=== PATIENT | female | born 1995 | race African-American/Black ===

== ENCOUNTER 2017-08-02 22:05 | Emergency (ER) | payer MEDICAID, OTHER ==
[2017-08-02] MEDS ORDERED: HYDROCODONE/ACETAMINOPHEN 5-325 MG TABLET PO ONE (22:57)
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
[2017-08-03 00:51] VITALS: BP 121/80
== END 2017-08-03 00:51 | disposition home or self-care (01) ==
LOC: ER 22:05
DX: S62.301A Unspecified fracture of second metacarpal bone, left hand, initial encounter for closed fracture (principal); V58.5XXA Driver of pick-up truck or van injured in noncollision transport accident in traffic accident, initial encounter; Y93.89 Activity, other specified; J45.909 Unspecified asthma, uncomplicated; Z87.891 Personal history of nicotine dependence; Z91.013 Allergy to seafood
CPT/HCPCS: 99284

== ENCOUNTER 2017-11-08 12:58 | Emergency (ER) | payer SELFPAY ==
[2017-11-08 13:10] VITALS: BP 112/64
--- NOTE | 2017-11-08 13:53 | ER Document Report ---
ED Medical Screen (RME) - General Chief Complaint: Vaginal Bleeding Stated Complaint: VAGINAL BLEEDING Time Seen by Provider: 11/08/17 13:37 TRAVEL OUTSIDE OF THE [place] IN LAST 30 DAYS: No - HPI Patient complains to provider of: Vaginal bleeding Onset: Other - This 22-year-old female presents for evaluation of vaginal bleeding which began last night and is worsened through the day noted to be gushes of blood. She notes that generally her. Is not this heavy, is uncertain what may be causing it to be such today. She denies any trauma to the abdomen injuries bleeding problems health problems medication use or abuse does note that she has drank alcohol as recently as last night. - Related Data Allergies/Adverse Reactions: Shellfish * [Shellfish] Allergy (Verified 11/08/17 12:58) Past Medical History - Social History Family history: Reviewed & Not Pertinent Pulmonary Medical History: Reports: Hx Asthma Renal/ Medical History: Denies: Hx Peritoneal Dialysis - Immunizations Immunizations up to date: Yes Hx Diphtheria, Pertussis, Tetanus Vaccination: Yes Physical Exam - Vital signs Vitals: Temp Pulse Resp BP Pulse Ox 97.7 F 81 16 112/64 100 11/08/17 13:08 11/08/17 13:08 11/08/17 13:08 11/08/17 13:08 11/08/17 13:08 Course - Re-evaluation Re-evalutation: 11/08/17 16:27 Young woman with persistent vaginal bleeding and clots, soaking several pads over the last couple of hours. On examination she is overall well appearing, hemodynamically stable does not appear to be actively exsanguinating. We will plan for CBC as well as urinalysis likely pelvic examination. We will plan for patient undergo further evaluation investigation via secondary provider in more appropriate examination room. - Vital Signs Vital signs: Temp Pulse Resp BP Pulse Ox 97.7 F 81 16 112/64 100 11/08/17 13:08 11/08/17 13:08 11/08/17 13:08 11/08/17 13:08 11/08/17 13:08 - Laboratory Result Diagrams: 11/08/17 14:02 Laboratory results interpreted by me: 11/08/17 14:02 MCV 74 L MCH 25.9 L Doctor's Discharge - Discharge Referrals: VICTORIA HOLLAND MD [Primary Care Provider] - Follow up as needed
[2017-11-08 14:26] LABS: ABSOLUTE BASOPHILS # (AUTO) 0.1 10^3/uL (0.0-0.2); ABSOLUTE EOSINOPHILS # (AUTO) 0.1 10^3/uL (0.0-0.6); ABSOLUTE MONOCYTES (AUTO) 0.7 10^3/uL (0.1-1.4); ABSOLUTE NEUT (AUTO) 6.1 10^3/uL (1.7-8.2); BASOPHILS % (AUTO) 1.1 % (0-2); EOSINOPHILS % (AUTO) 1.4 % (0-6); HEMATOCRIT 36.8 % (36.0-47.0); HEMOGLOBIN 12.8 g/dL (12.0-15.5); MEAN CORPUSCULAR HEMOGLOBIN 25.9 pg (27.0-33.4); MEAN CORPUSCULAR HGB CONC 34.9 g/dL (32.0-36.0); MEAN CORPUSCULAR VOLUME 74 fl (80-97); MONOCYTES % (AUTO) 8.1 % (3-13); PLATELET COUNT 307 10^3/uL (150-450); RED BLOOD COUNT 4.95 10^6/uL (3.72-5.28); RED CELL DISTRIBUTION WIDTH 13.7 % (11.5-14.0); SEGMENTED NEUTROPHILS % (AUTO) 67.4 % (42-78); TOTAL CELLS COUNTED % (AUTO) 100 %
--- NOTE | 2017-11-08 14:43 | ER Document Report ---
ED GI/ - General Chief Complaint: Vaginal Bleeding Stated Complaint: VAGINAL BLEEDING Time Seen by Provider: 11/08/17 13:37 Mode of Arrival: Ambulatory Information source: Patient Notes: 22-year-old female presents to ED for complaint of vaginal bleeding since last night. She states that 3 weeks ago she had sex and then just forgot about it. She said last night she was started bleeding and went to her pants several times while she was drinking. She states her last menstrual period was on October 21. She states she is also having pelvic cramping. She states in the last hour she has been to a tampon and a pad. Patient is alert and oriented respirations regular and unlabored speaking in full sentences and walking with a even steady gait. TRAVEL OUTSIDE OF THE [place] IN LAST 30 DAYS: No - HPI Patient complains to provider of: Pelvic pain, Vaginal bleeding Onset: Yesterday Timing/Duration: Persistent Quality of pain: Cramping Severity at maximum: Severe Severity in ED: Moderate Pain Level: 3 Location: Pelvis Vaginal bleeding (Compared to normal period): Heavier LMP: 3 weeks ago Associated symptoms: Other - Pelvic cramping and vaginal bleeding Exacerbated by: Denies Relieved by: Denies Similar symptoms previously: Yes Recently seen / treated by doctor: No - Related Data Allergies/Adverse Reactions: Shellfish * [Shellfish] Allergy (Verified 11/08/17 12:58) Past Medical History - General Information source: Patient - Social History Smoking Status: Never Smoker Cigarette use (# per day): No Chew tobacco use (# tins/day): No Smoking Education Provided: No Frequency of alcohol use: Occasional Drug Abuse: None Occupation: Due to Lives with: Grandparent(s) Family History: None Patient has suicidal ideation: No Patient has homicidal ideation: No - Past Medical History Cardiac Medical History: Reports: None Pulmonary Medical History: Reports: Hx Asthma EENT Medical History: Reports: None Neurological Medical History: Reports: None Endocrine Medical History: Reports: None Renal/ Medical History: Reports: None Malignancy Medical History: Reports: None GI Medical History: Reports: None Musculoskeletal Medical History: Reports None Skin Medical History: Reports None Psychiatric Medical History: Reports: None Traumatic Medical History: Reports: None Infectious Medical History: Reports: None Surgical Hx: Negative Past Surgical History: Reports: None - Immunizations Immunizations up to date: Yes Hx Diphtheria, Pertussis, Tetanus Vaccination: Yes Review of Systems - Review of Systems Constitutional: No symptoms reported EENT: No symptoms reported Cardiovascular: No symptoms reported Respiratory: No symptoms reported Gastrointestinal: No symptoms reported Genitourinary: No symptoms reported Female Genitourinary: Vaginal bleeding, Other - The cramping Musculoskeletal: No symptoms reported Skin: No symptoms reported Hematologic/Lymphatic: No symptoms reported Neurological/Psychological: No symptoms reported -: Yes All other systems reviewed and negative Physical Exam - Vital signs Vitals: Temp Pulse Resp BP Pulse Ox 97.7 F 81 16 112/64 100 11/08/17 13:08 11/08/17 13:08 11/08/17 13:08 11/08/17 13:08 11/08/17 13:08 Interpretation: Normal - General General appearance: Appears well, Alert - HEENT Head: Normocephalic, Atraumatic Eyes: Normal Pupils: PERRL - Respiratory Respiratory status: No respiratory distress Chest status: Nontender Breath sounds: Normal Chest palpation: Normal - Cardiovascular Rhythm: Regular Heart sounds: Normal auscultation Murmur: No - Abdominal Inspection: Normal Distension: No distension Bowel sounds: Normal Tenderness: Nontender Organomegaly: No organomegaly - Back Back: Normal, Nontender - Extremities General upper extremity: Normal inspection, Nontender, Normal color, Normal ROM , Normal temperature General lower extremity: Normal inspection, Nontender, Normal color, Normal ROM , Normal temperature, Normal weight bearing. No: Seth's sign - Neurological Neuro grossly intact: Yes Cognition: Normal Orientation: AAOx4 [place] Coma Scale Eye Opening: Spontaneous Tara Coma Scale Verbal: Oriented [place] Coma Scale Motor: Obeys Commands Tara Coma Scale Total: 15 Speech: Normal Motor strength normal: LUE, RUE, LLE, RLE Sensory: Normal - Psychological Associated symptoms: Normal affect, Normal mood - Skin Skin Temperature: Warm Skin Moisture: Dry Skin Color: Normal Course - Re-evaluation Re-evalutation: 11/08/17 21:23 Discussed with patient and written report of lab results given to patient to follow-up with her primary doctor. Patient was discharged home with instructions to use ibuprofen for her menstrual cramps. - Vital Signs Vital signs: Temp Pulse Resp BP Pulse Ox 98.2 F 82 16 112/64 97 11/08/17 16:57 11/08/17 16:57 11/08/17 16:57 11/08/17 13:08 11/08/17 16:57 - Laboratory Result Diagrams: 11/08/17 14:02 Laboratory results interpreted by me: 11/08/17 11/08/17 14:02 16:05 MCV 74 L MCH 25.9 L Urine Ketones 20 H Urine Urobilinogen 2.0 H Discharge - Discharge Clinical Impression: Vaginal bleeding Condition: Stable Disposition: HOME, SELF-CARE Instructions: Use of Rpsl-Otq-Lyohjlz Ibuprofen ([facility]) Additional Instructions: VAGINAL BLEEDING: You are having an episode of abnormal bleeding. Causes of abnormal vaginal bleeding can include miscarriage or tubal , tumors such as cancer or benign fibroids, medication effects, or hormone imbalance. Testing can eliminate unsuspected , tumors, or infection as a cause. "Dysfunctional uterine bleeding" is due to hormone imbalance, and is especially common at times when the normal cycle is disturbed -- whether by recent , use of control pills or hormones, or impending menopause. If the bleeding is innocent, most commonly a short course of hormones is given to restore the uterus to normal. Sometimes, the normal menstrual cycle corrects itself naturally. Sometimes , brief hormone therapy, or even a D&C is required. Your physician will advise you. Treatment for anemia may be required if bleeding is severe. You should rest and avoid intercourse until the bleeding is controlled. Call the doctor or return for re-examination if you feel faint, have increasing pain, or have a major increase in the amount of bleeding. NORMAL EXAM AND WORKUP: At this time, except for vaginal bleeding, your examination and workup show no significant abnormality. No significant abnormal physical findings were noted. All laboratory, EKG, and imaging (x-ray, CT scans, ultrasound) studies that were ordered show no significant abnormality. Although your examination and all studies that were ordered showed no significant abnormal finding, there are no examinations and no studies that are 100% accurate. There is always the possibility that some abnormality could exist and not be detected with physical examination or within the limits and capabilities of laboratory and other studies. You should return or follow up as you were instructed on your visit today for further evaluation if your symptoms do not resolve. FOLLOW-UP CARE: If you have been referred to a physician for follow-up care, call the physician s office for an appointment as you were instructed or within the next two days. If you experience worsening or a significant change in your symptoms (very heavy bleeding with large clots of blood, passage of tissue, more severe abdominal / pelvic pain or cramping, feeling faint or severe weakness, fever, etc.), notify the physician immediately or return to the Emergency Department at any time for re-evaluation. OBSTETRIC-GYNECOLOGIC (OB-PRECISION AGRONOMIST) PHYSICIANS IN SNEADS: [facility] [address] [place] [address] [phone] Referrals: VICTORIA HOLLAND MD [Primary Care Provider] - Follow up as needed
[2017-11-08 15:10] LABS: INTERNATIONAL RATION (INR) 0.95; PROTHROMBIN TIME 13.2 SEC (11.4-15.4)
[2017-11-08 16:17] LABS: EPITHELIALS (WET MOUNT) 3+ EPITHELIALS SEEN; RBCS (WET MOUNT) 4+ RBCS SEEN; T.VAGINALIS (WET MOUNT) NO TRICHOMONAS SEEN; WBCS (WET MOUNT) RARE WBCS SEEN; YEAST (WET MOUNT) NO YEAST SEEN
[2017-11-08 16:32] LABS: APPEARANCE,URINE CLEAR; BILIRUBIN,URINE NEGATIVE (NEGATIVE); COLOR,URINE YELLOW; GLUCOSE, URINE NEGATIVE (NEGATIVE); KETONES,URINE 20 mg/dL (NEGATIVE); LEUKOCYTE ESTERASE,URINE NEGATIVE (NEGATIVE); NITRITE,URINE NEGATIVE (NEGATIVE); PROTEIN,URINE NEGATIVE (NEGATIVE); URINE SPECIFIC GRAVITY 1.029
[2017-11-08 17:43] LABS: CHLAM PCR NOT DETECTED (NOT DETECT); GON PCR NOT DETECTED (NOT DETECT)
== END 2017-11-08 16:58 | disposition home or self-care (01) ==
LOC: ER 12:58
DX: N93.8 Other specified abnormal uterine and vaginal bleeding (principal); R10.2 Pelvic and perineal pain
CPT/HCPCS: 36415; 81001; 84702; 85025; 85610; 87210; 87491; 87591; 99284

== ENCOUNTER 2019-11-28 15:00 | Emergency (ER) | payer OTHER ==
--- NOTE | 2019-11-28 15:19 | ER Document Report ---
ED Medical Screen (RME) - General Chief Complaint: Vaginal Bleeding Stated Complaint: ABDOMINAL CRAMPING Time Seen by Provider: 11/28/19 15:14 Primary Care Provider: VICTORIA HOLLAND MD [Primary Care Provider] - Follow up as needed Information source: Patient Notes: Patient presents complaining of pelvic pain for the past 3 days with heavy vaginal bleeding. Patient denies any lightheadedness or chest pain. Patient does complain of fatigue. No urinary symptoms. Patient is not currently on any kind of control. I have greeted and performed a rapid initial assessment of this patient. A comprehensive ED assessment and evaluation of the patient, analysis of test results and completion of the medical decision making process will be conducted by additional ED providers. TRAVEL OUTSIDE OF THE [place] IN LAST 30 DAYS: No - Related Data Allergies/Adverse Reactions: Shellfish * [Shellfish] Allergy (Verified 11/08/17 12:58) Past Medical History - Social History Frequency of alcohol use: None Drug Abuse: None Family history: Reviewed & Not Pertinent Pulmonary Medical History: Reports: Hx Asthma Renal/ Medical History: Denies: Hx Peritoneal Dialysis - Immunizations Immunizations up to date: Yes Hx Diphtheria, Pertussis, Tetanus Vaccination: Yes Physical Exam - Vital signs Vitals: Temp Pulse Resp BP Pulse Ox 98.9 F 78 20 116/64 98 11/28/19 15:06 11/28/19 15:06 11/28/19 15:06 11/28/19 15:06 11/28/19 15:06 - Abdominal Tenderness: Tender - Lower pelvic tenderness Course - Vital Signs Vital signs: Temp Pulse Resp BP Pulse Ox 98.9 F 78 20 116/64 98 11/28/19 15:06 11/28/19 15:06 11/28/19 15:06 11/28/19 15:06 11/28/19 15:06 Doctor's Discharge - Discharge Referrals: VICTORIA HOLLAND MD [Primary Care Provider] - Follow up as needed
[2019-11-28 16:05] LABS: ABSOLUTE BASOPHILS # (AUTO) 0.1 10^3/uL (0.0-0.2); ABSOLUTE EOSINOPHILS # (AUTO) 0.4 10^3/uL (0.0-0.6); ABSOLUTE LYMPHOCYTES (AUTO) 2.3 10^3/uL (0.5-4.7); ABSOLUTE MONOCYTES (AUTO) 0.7 10^3/uL (0.1-1.4); ABSOLUTE NEUT (AUTO) 4.3 10^3/uL (1.7-8.2); BASOPHILS % (AUTO) 0.8 % (0-2); EOSINOPHILS % (AUTO) 4.8 % (0-6); HEMATOCRIT 31.3 % (36.0-47.0); HEMOGLOBIN 11.1 g/dL (12.0-15.5); LYMPHOCYTES % (AUTO) 29.8 % (13-45); MEAN CORPUSCULAR HGB CONC 35.3 g/dL (32.0-36.0); MEAN CORPUSCULAR VOLUME 74 fl (80-97); MONOCYTES % (AUTO) 9.2 % (3-13); PLATELET COUNT 326 10^3/uL (150-450); RED BLOOD COUNT 4.26 10^6/uL (3.72-5.28); RED CELL DISTRIBUTION WIDTH 14.2 % (11.5-14.0); SEGMENTED NEUTROPHILS % (AUTO) 55.4 % (42-78); TOTAL CELLS COUNTED % (AUTO) 100 %; WHITE BLOOD COUNT 7.7 10^3/uL (4.0-10.5)
--- NOTE | 2019-11-28 16:07 | ER Document Report ---
ED General - General Chief Complaint: Vaginal Bleeding Stated Complaint: ABDOMINAL CRAMPING Time Seen by Provider: 11/28/19 15:14 Primary Care Provider: VICTORIA HOLLAND MD [Primary Care Provider] - Follow up as needed TRAVEL OUTSIDE OF THE [place] IN LAST 30 DAYS: No - HPI Onset: Other - 3 days ago Onset/Duration: Gradual Quality of pain: Cramping Associated symptoms: denies: Chest pain, Productive cough, Diarrhea, Fever, Headache Exacerbated by: Denies Relieved by: Denies Similar symptoms previously: Yes Notes: Patient is a 24-year-old female with no significant past medical history who presents with vaginal bleeding. Patient states that she has had vaginal bleeding for the past several days. She also has cramping. She denies any diarrhea, nausea, vomiting or constipation. Patient thinks her last period may have been about 1 month ago but she has irregular periods and is not sure. She denies any concern for STDs. Patient has been using ibuprofen but has not taken any today. She has not gone to work for the past 2 days because she states she has been changing her tampon every hour. Denies any fevers or chills. She has not seen an OB for this. She has had heavy vaginal bleeding and cramping in the past. - Related Data Allergies/Adverse Reactions: Shellfish * [Shellfish] Allergy (Verified 11/08/17 12:58) Past Medical History - General Information source: Patient - Social History Smoking Status: Never Smoker Frequency of alcohol use: None Drug Abuse: None Family History: None Pulmonary Medical History: Reports: Hx Asthma Renal/ Medical History: Denies: Hx Peritoneal Dialysis - Immunizations Immunizations up to date: Yes Hx Diphtheria, Pertussis, Tetanus Vaccination: Yes Review of Systems - Review of Systems Notes: CONSTITUTIONAL: No fever, fatigue or weight loss. SKIN: No rash. HENT: No congestion, ear pain, or sore throat. EYES: No recent vision problems or eye pain. ENDOCRINE: No polyuria or polydipsia. CARDIOVASCULAR: No chest pain or edema. RESPIRATORY: No cough, shortness of breath, congestion, or wheezing. GASTROINTESTINAL: No abdominal pain, nausea, vomiting, bloody stools or diarrhea. GENITOURINARY: No dysuria. Positive for vaginal bleeding MUSCULOSKELETAL: No joint pain or swelling. LYMPHATIC: No swollen glands. NEUROLOGIC: No seizures. No headache, focal weakness or sensory changes. PSYCHIATRIC: No depression or anxiety. Physical Exam - Vital signs Vitals: Temp Pulse Resp BP Pulse Ox 98.9 F 78 20 116/64 98 11/28/19 15:06 11/28/19 15:06 11/28/19 15:06 11/28/19 15:06 11/28/19 15:06 Interpretation: Normal - Notes Notes: VITAL SIGNS: Within normal limits. GENERAL: No acute distress, non-toxic appearance. Smiling and laughing in the room, watching TV. HEAD: Normal with no signs of head trauma. EYES: EOMI, conjunctiva normal, no discharge. EARS: Hearing grossly intact. NOSE: Normal. NECK: Normal range of motion, no tenderness, supple, no lymphadenopathy, No adenopathy, no JVD. CHEST: Clear breath sounds bilaterally. No wheezes, rales, or rhonchi. CARDIAC: Regular rate and rhythm. S1 and S2, without murmurs, gallops, or rubs. VASCULAR: No Edema. Peripheral pulses normal and equal in all extremities. ABDOMEN: Normal and soft with no tenderness, no masses or pulsatile masses. Nontender to palpation. GENITOURINARY: Normal, No tenderness LYMPATHTIC: No lymphadenopathy noted. MUSCULOSKELETAL: Good range of motion of all major joints. Extremities without clubbing, cyanosis or edema. NEUROLOGICAL: Alert and oriented x 3. No focal sensory or strength deficits. Speech normal. Follows commands appropriately. PSYCHIATRIC: Normal Affect, judgement and mood. SKIN: Normal appearance with no rashes or lesions. Course - Re-evaluation Re-evalutation: 11/28/19 16:10 Patient appears well on exam. She is smiling and laughing. She is unsure when her last period was as it is irregular but thinks it was about a month ago. Patient states she does not have an OB. She is declining any pain medicine. She states she is not cramping. Patient's ultrasound was reviewed and was negative. I did inform her of her mildly low hemoglobin but she has had this in the past. Patient was told that she needs to follow-up with an OB for the vaginal bleeding. She was given strict return precautions including worsening bleeding or other symptoms. 11/29/19 01:32 - Vital Signs Vital signs: Temp Pulse Resp BP Pulse Ox 98.7 F 70 18 114/62 99 11/28/19 18:49 11/28/19 18:49 11/28/19 18:49 11/28/19 18:49 11/28/19 18:49 - Laboratory Result Diagrams: 11/28/19 15:20 11/28/19 15:20 Laboratory results interpreted by me: 11/28/19 11/28/19 15:20 15:20 Hgb 11.1 L Hct 31.3 L MCV 74 L MCH 26.0 L RDW 14.2 H Chloride 108 H - Diagnostic Test Radiology reviewed: Image reviewed, Reports reviewed Discharge - Discharge Clinical Impression: Vaginal bleeding, Abdominal cramping Condition: Stable Disposition: HOME, SELF-CARE Instructions: Vaginal Bleeding ([facility]) Additional Instructions: I provided the number for an [employer] for you to follow-up with. You can take ibuprofen and Tylenol as directed. Please return for any increase of bleeding, lightheadedness, chest pain, dizziness, worsening symptoms. Forms: Return to Work Referrals: VICTORIA HOLLAND MD [Primary Care Provider] - Follow up as needed
[2019-11-28 16:21] LABS: ANION GAP 5 (5-19); BLOOD UREA NITROGEN 7 mg/dL (7-20); CALCIUM 9.1 mg/dL (8.4-10.2); CARBON DIOXIDE 27 mmol/L (22-30); CHLORIDE 108 mmol/L (98-107); GLUCOSE 88 mg/dL (75-110); POTASSIUM 4.2 mmol/L (3.6-5.0)
[2019-11-28 17:31] LABS: CHLAM PCR NOT DETECTED (NOT DETECT)
--- NOTE | 2019-11-28 17:32 | RADIOLOGY REPORT (SQ) ---
EXAM DESCRIPTION: U/S NON OB PEL TV W/DOPPLER IMAGES COMPLETED DATE/TIME: 11/28/2019 5:18 pm REASON FOR STUDY: vaginal bleeding and cramping COMPARISON: None. TECHNIQUE: Dynamic and static grayscale images acquired of the pelvis via transvaginal approach and recorded on PACS. Additional selected color Doppler and spectral images recorded. LIMITATIONS: None. FINDINGS: UTERUS: Contour normal. No mass. ENDOMETRIAL STRIPE: No focal or generalized thickening. No masses. CERVIX: No nabothian cysts. RIGHT OVARY AND DOPPLER: Normal size. No worrisome masses. Normal arterial vascular flow without evid ence for torsion. LEFT OVARY AND DOPPLER: Ovary not visualized. FREE FLUID: None noted. OTHER: No other significant finding. IMPRESSION: Nonvisualization of the left ovary. Otherwise normal. TECHNICAL DOCUMENTATION: JOB ID: [id number] 2010 [employer]- All Rights Reserved Rev Reading location - IP/workstation name: [email or web address]
[2019-11-28 18:50] VITALS: BP 114/62
== END 2019-11-28 18:49 | disposition home or self-care (01) ==
LOC: ER 15:00
DX: N93.9 Abnormal uterine and vaginal bleeding, unspecified (principal); R10.9 Unspecified abdominal pain; Z79.899 Other long term (current) drug therapy; J45.909 Unspecified asthma, uncomplicated
CPT/HCPCS: 36415; 76830; 80048; 84703; 85025; 87491; 87591; 93976; 99284